=== PATIENT | female | born 2000 | race Caucasian/White ===

== ENCOUNTER 2024-03-05 22:09 | Emergency (ER) | payer BC, SELFPAY ==
[2024-03-05 22:12] VITALS: BP 128/76
--- NOTE | 2024-03-05 23:19 | ED.GENMED ---
Addendum entered and electronically signed by Nupur Armstrong NP 03/06/24 15:30:
Pt feeling better today, notified of + Norovirus
Original Note:
History of Present Illness
General
Chief Complaint: Abdominal Symptoms
Source: patient
Exam Limitations: none
Time Seen by Provider: 03/05/24 23:07
Nursing documentation reviewed up to this point in time: agreed with
History of Present Illness
History of Present Illness:
23 yo female presents for sudden onset nausea 4 pm, has vomited approx 10 times, non bloody diarrhea approx same number of times. Last antibiotic use last month for ear infection. Also has dysuria and taking Azo. Hx of UTI with pyelonephritis.
Denies fever/chills. Has mid back discomfort and mild abdominal pain. Is currently menstruating.
Past History
Past History
ED Past Medical History: Other (UTI, pyelonephritis)
ED Past Surgical History: Orthopedic and Tonsilectomy
Social History
Tobacco: Non-smoker
Alcohol: Occasional
Personal: Single
Living: with family
Employment: Employed
Review of Systems
Review of Systems
Allergies reviewed?: Yes
All Other Systems: ROS reviewed and negative except as documented in HPI and ROS
Constitutional: Denies fever or chills
Respiratory: Denies trouble breathing
Cardiac: Denies chest pain
ABD/GI: Reports abdominal pain, nausea, vomiting and diarrhea; Denies bloody stools or black stools
: Reports dysuria; Denies frequency, flank pain, difficulty voiding or urgency
Musculoskeletal: Reports back pain ((points to) mid thoracic area back pain)
Skin: Reports no symptoms
Neurological: Reports no symptoms
Phy Exam
Physical Exam
Physical Exam:
GENERAL: No acute distress. A&Ox3.
CONSTITUTIONAL: Afebrile.
EYES: clear, conjunctivae normal
ENMT: moist mucus membranes, Pharynx nl
RESPIRATORY: Regular respirations, nonlabored, lungs clear.
CARDIOVASCULAR: Regular rate and rhythm, no murmurs, no rubs.
GI: Soft, generally mildly tender, normal BS
MUSCULOSKELETAL: Moves with ease. Well perfused.
SKIN: Warm, dry, pink
PSYCH: Normal mood and affect. Well kept, interactive and appropriate
NEUROLOGIC: Awake, alert and oriented. No focal neurological deficits
Course
Orders/Labs/Results
Orders:
Orders
03/05/24 23:20
Ondansetron Orally Disint [Zofran Odt (Orally Disintegrating)] 4 mg PO NOW STA
03/05/24 23:36
Urinalysis Reflex To Culture Urgent
Date Specimen was Collected: 03/05/24
Time Specimen was Collected: 23:34
Urine Microscopic Reflex Cult Urgent
Urine Culture Urgent
[facility] Source: U
Specimen Description:
Date Specimen was Collected: 03/05/24
Time Specimen was Collected: 23:34
03/05/24 23:40
Norovirus by PCR Urgent
[facility] Source: Feces/Stool
Specimen Description:
Date Specimen was Collected: 03/05/24
Time Specimen was Collected: 23:37
STOOL [C difficile Antigen & Toxins] Urgent
[facility] Source: Feces/Stool
Specimen Description:
Date Specimen was Collected: 03/05/24
Time Specimen was Collected: 23:37
Stool Culture Urgent
[facility] Source: Feces/Stool
Specimen Description:
Date Specimen was Collected: 03/05/24
Time Specimen was Collected: 23:37
03/05/24 23:52
0.9% Sodium Chloride 1000 ml [Nss] 1,000 ml IV BOLUS
Abnormal Lab Results
03/05/24
23:36
Urine Ketones 3+ A
(Negative)
Ur Occult Blood Reflex 3+ A
(Negative)
Leukocyte Esterase Rfl Trace A
(Negative)
Urine RBC 50-60 A /HPF
(0-2)
Urine Bacteria (Reflex) Moderate A
(Negative)
Vital Signs
Initial and Last Documented VS:
Initial Vital Signs
Temp Pulse Resp BP Pulse Ox
98.5 F 117 18 128/76 97
03/05/24 22:12 03/05/24 22:12 03/05/24 22:12 03/05/24 22:12 03/05/24 22:12
Last Documented Vital Signs
Temp Pulse Resp BP Pulse Ox
98.9 F 95 20 110/57 98
03/06/24 01:11 03/06/24 01:11 03/06/24 01:11 03/06/24 01:11 03/06/24 01:11
MDM/Problems Addressed
Differential Diagnosis Includes:
viral gastroenteritis, norovirus, c diff
MDM/Problems Addressed:
23 yo female presents for sudden onset nausea 4 pm, has vomited approx 10 times, non bloody diarrhea approx same number of times. Last antibiotic use last month for ear infection. Also has dysuria and taking Azo. Hx of UTI with pyelonephritis.
Denies fever/chills. Has mid back discomfort and mild abdominal pain. Is currently menstruating.
Afebrile NAD
After receiving 1 L normal saline solution pt states she feels much better, no vomiting or diarrhea since arrival.
Urinalysis reveals RBCs, patient is currently menstruating. No sign of infection.
Stool cultures pending
Pt will check the portal for results.
*Critical Care Note
Total Time (30-74mins, 75-104mins- exclusive of procedures): Not Applicable
ED Attending Note
-
Portions of this chart may have been created with voice recognition software.� Occasional wrong word or��sound alike� substitutions may have occurred due to the inherent limitations of voice recognition software.
Discharge Plan
Departure
Patient Disposition: Home (Routine Discharge)
Date of Disposition: 03/06/24
Time of Disposition: 02:10
Patient with high blood pressure during this ER visit?: No
Condition: Good
Discharge Problem:
Gastroenteritis
Instructions: Diarrhea in teens and adults, Nausea and Vomiting, Adult (DC)
Prescriptions:
New
ondansetron 4 mg tablet,disintegrating
4 mg PO Q8H PRN (Reason: nausea and vomiting) 4 Days Qty: 12 0RF
No Action
desogestrel-ethinyl estradiol [Enskyce] 0.15-0.03 mg Tablet
1 tab PO DAILY
Referrals:
BLAKE CARDENAS [Other]
Activity Restrictions/Additional Instructions:
As we discussed, use the Zofran if needed for nausea and vomiting.
Your stool test results will be done tomorrow.
See if you can get on the portal to get the results
I will be here tomorrow evening, you may call me between 4 PM and 9 PM for the results if needed [phone] and ask for
Interventions
Interventions:
*Risk Screen - Suicide Last Done: 03/05/24 22:12
*General Assessment Last Done: 03/05/24 22:12
*Neglect/Abuse Screening Last Done: 03/05/24 22:12
ED- Fall Risk Assessment Last Done: 03/05/24 23:32
*ED COVID-19 Vaccine History Last Done: 03/05/24 23:28
AM-Fobmxy-Pqxqqgmfus Assessment Last Done: 03/05/24 23:32
Discharge Date and Time
Print Language: SERBIAN
[2024-03-05] MEDS: ZOFRAN ODT (ORALLY DISINTEGRATING) 4 MG PO (23:26)
[2024-03-05 23:28] VITALS: BP 113/67
[2024-03-05 23:31] VITALS: BMI 22.2
[2024-03-05] MEDS: NSS 1000 IV (23:53)
[2024-03-06 00:45] LABS: Urine Albumin Trace (Neg - Trace); Urine Bilirubin Negative (Negative); Urine Character Clear (Clear); Urine Color Amber; Urine Glucose Negative (Negative); Urine Ketone 3+ (Negative); Urine Leukocyte Trace (Negative); Urine Nitrite Negative (Negative); Urine Occult Blood 3+ (Negative); Urine Specific Gravity 1.025 (<1.030); Urine Urobilinogen Negative (Neg - 1+)
[2024-03-06 01:11] VITALS: BP 110/57
[2024-03-06 01:32] LABS: Urine Squamous Cell >30 /LPF (Few)
[2024-03-06 01:33] LABS: Urine Bacteria Moderate (Negative); Urine Red Blood Cell 50-60 /HPF (0-2)
[2024-03-06 02:16] VITALS: BP 103/45
--- NOTE | 2024-03-06 15:29 | ED.GENMED ---
History of Present Illness
General
Chief Complaint: Abdominal Symptoms
Time Seen by Provider: 03/05/24 23:07
History of Present Illness
History of Present Illness:
..
Past History
Past History
ED Past Medical History: Other (UTI, pyelonephritis)
ED Past Surgical History: Orthopedic and Tonsilectomy
Social History
Tobacco: Non-smoker
Alcohol: Occasional
Personal: Single
Living: with family
Employment: Employed
Phy Exam
Physical Exam
Physical Exam:
..
Course
Orders/Labs/Results
Orders:
Orders
03/05/24 23:20
Ondansetron Orally Disint [Zofran Odt (Orally Disintegrating)] 4 mg PO NOW STA
03/05/24 23:36
Urinalysis Reflex To Culture Urgent
Date Specimen was Collected: 03/05/24
Time Specimen was Collected: 23:34
Urine Microscopic Reflex Cult Urgent
Urine Culture Urgent
[facility] Source: U
Specimen Description:
Date Specimen was Collected: 03/05/24
Time Specimen was Collected: 23:34
03/05/24 23:40
Norovirus by PCR Urgent
[facility] Source: Feces/Stool
Specimen Description:
Date Specimen was Collected: 03/05/24
Time Specimen was Collected: 23:37
STOOL [C difficile Antigen & Toxins] Urgent
[facility] Source: Feces/Stool
Specimen Description:
Date Specimen was Collected: 03/05/24
Time Specimen was Collected: 23:37
Stool Culture Urgent
[facility] Source: Feces/Stool
Specimen Description:
Date Specimen was Collected: 03/05/24
Time Specimen was Collected: 23:37
03/05/24 23:52
0.9% Sodium Chloride 1000 ml [Nss] 1,000 ml IV BOLUS
Abnormal Lab Results
03/05/24
23:36
Urine Ketones 3+ A
(Negative)
Ur Occult Blood Reflex 3+ A
(Negative)
Leukocyte Esterase Rfl Trace A
(Negative)
Urine RBC 50-60 A /HPF
(0-2)
Urine Bacteria (Reflex) Moderate A
(Negative)
Vital Signs
Initial and Last Documented VS:
Initial Vital Signs
Temp Pulse Resp BP Pulse Ox
98.5 F 117 18 128/76 97
03/05/24 22:12 03/05/24 22:12 03/05/24 22:12 03/05/24 22:12 03/05/24 22:12
Last Documented Vital Signs
Temp Pulse Resp BP Pulse Ox
98.9 F 103 20 103/45 98
03/06/24 01:11 03/06/24 02:16 03/06/24 02:16 03/06/24 02:16 03/06/24 02:41
*Critical Care Note
Total Time (30-74mins, 75-104mins- exclusive of procedures): Not Applicable
ED Attending Note
-
Portions of this chart may have been created with voice recognition software.� Occasional wrong word or��sound alike� substitutions may have occurred due to the inherent limitations of voice recognition software.
Discharge Plan
Departure
Patient Disposition: Home (Routine Discharge)
Date of Disposition: 03/06/24
Time of Disposition: 02:10
Patient with high blood pressure during this ER visit?: No
Condition: Good
Discharge Problem:
Gastroenteritis
Instructions: Diarrhea in teens and adults, Nausea and Vomiting, Adult (DC)
Prescriptions:
New
ondansetron 4 mg tablet,disintegrating
4 mg PO Q8H PRN (Reason: nausea and vomiting) 4 Days Qty: 12 0RF
No Action
desogestrel-ethinyl estradiol [Enskyce] 0.15-0.03 mg Tablet
1 tab PO DAILY
Referrals:
CARDENAS, BLAKE [Other]
Activity Restrictions/Additional Instructions:
As we discussed, use the Zofran if needed for nausea and vomiting.
Your stool test results will be done tomorrow.
See if you can get on the portal to get the results
I will be here tomorrow evening, you may call me between 4 PM and 9 PM for the results if needed [phone] and ask for Yareli day
Interventions
Interventions:
*Risk Screen - Suicide Last Done: 03/05/24 22:12
*General Assessment Last Done: 03/05/24 22:12
*Neglect/Abuse Screening Last Done: 03/05/24 22:12
ED- Fall Risk Assessment Last Done: 03/05/24 23:32
*ED COVID-19 Vaccine History Last Done: 03/05/24 23:28
*Nursing Disposition Last Done: 03/06/24 02:41
CI-Egjymc-Pempniwdaa Assessment Last Done: 03/05/24 23:32
Discharge Date and Time
Discharge Date/Time: 03/06/24 02:42
Print Language: DIVEHI
== END 2024-03-06 02:42 | disposition home or self-care (01) ==
LOC: EMR 22:09
PROVIDERS: Registered Nurse; EMERGENCY PHYSICIAN Emergency Medicine
DX: K52.9 Noninfective gastroenteritis and colitis, unspecified (principal); Z87.440 Personal history of urinary (tract) infections
CPT/HCPCS: 96360; 99284; 81003; 81015; 87045; 87046; 87077; 87086; 87324; 87427; 87449; 87798